=== PATIENT | male | born 1935 | race Caucasian/White ===

== ENCOUNTER 2017-05-15 20:28 | Emergency (ER) | payer OTHER ==
--- NOTE | 2017-05-15 20:58 | ED NURSING NOTES ---
Clinical Report - Nurses [facility] [address] [place] [address] 05/15/2017 20:28 Patient: BEE THOMPSON TRIAGE Triage time 20:36 May 15 2017. Acuity: LEVEL 3. Alert. No acute distress. MEGAN COMA SCORE: [place] Coma Scale: 15- eyes open spontaneously (4); best verbal response- oriented x 4 (5); best motor response- obeys commands (6). --20:48 Cari Durant R.N. 20:36 05/15/17. BP: 182/74. HR: 70. RR: 16. O2 saturation: 96%. Temp: 98.1 F. Pain level now: 0/10. --20:48 Cari Durant R.N. Weight: 81.6 kg stated. Height/Length: 68 inches Per Patient. BMI: 27.4. --20:46 Cari Durant R.N. Medications Carbidopa-Levodopa CR Oral 25/250, 5x per day. --20:40 Cari Durant R.N. Carbidopa-Levodopa Oral 50/200 mg, 5x a day. --20:40 Cari Durant R.N. Primadone 50mg , daily. --20:41 Cari Durant R.N. Selegiline HCl Oral 5 mg, daily. --20:41 Cari Durant R.N. Entacapone Oral (Tablet 200 mg) 1 tablet, 5x a day. --20:42 Cari Durant R.N. Pramipexole Dihydrochloride Oral (Tablet 0.5 mg) 1 tablet, 5x a day. --20:42 Cari Durant R.N. Multivitamin Oral. --20:43 Cari Durant R.N. Allergies None. --20:43 Knebel, Cari, R.N. History Arrived by private vehicle. Historian: patient. Accompanied by family. This occurred (about 2 hours ago). Occurred at home. He has had mild extremity pain (right hip pain). No back pain. Treatment [employer]: None. PAST MEDICAL HX: Tetanus status: up-to-date. Immunizations: up-to-date. SOCIAL HX: Smoker- current status unknown. No alcohol use or drug use. No infectious disease exposure. SELF HARM ASSESSMENT: A self harm assessment was performed. The patient answered "no" to the question "Do you have thoughts of harming or killing yourself?" and "Have you recently had thoughts about harming or killing others?". FALL RISK ASSESSMENT: Fall risk assessment completed. No fall risk identified. NUTRITIONAL RISK ASSESSMENT: The nutritional risk assessment revealed no deficiencies. FUNCTIONAL ASSESSMENT: Functional assessment: no impairments noted. LEARNING NEEDS ASSESSMENT: The learning needs assessment revealed no barriers. ABUSE ASSESSMENT: Abuse assessment: The patient was asked "Do you feel safe in your home?". SKIN INTEGRITY ASSESSMENT: Skin integrity risk assessment completed. No skin integrity risk identified. --20:48 Cari Durant R.N. PROBLEMS: Laceration. Parkinson's Disease. --20:43 Cari Durant R.N. ADDITIONAL SURGERIES: Back Surgery. Hernia Repair. --20:43 Cari Durant R.N. Interventions ID band on patient. To room. --20:48 Cari Durant R.N. PHYSICAL ASSESSMENT To room via wheelchair. GENERAL / NEURO / PSYCH: Alert. Oriented X 4. Appears in no acute distress. HEENT: No signs of head trauma. RESPIRATORY: Respirations not labored. CVS: Capillary refill less than 2 seconds. GI / : Abdomen soft and nontender. EXTREMITIES: Extremities exhibit normal ROM. SKIN: Skin is warm and dry. --20:48 Cari Durant R.N. NURSING PROGRESS NOTES Patient gowned. Patient identifiers checked. Call light placed in reach. Side rails up. Bed placed in lowest position. Brakes of bed on. --20:50 Cari Durant R.N. DISPOSITION / DISCHARGE Departure time: 2103. Condition at departure: improved and stable. No learning barriers present. Discharge instructions provided and reviewed with the patient and family. Patient and family verbalized understanding. Written instructions provided in Bengali. No medication instructions, treatment instructions or activity restrictions. The patient was discharged home and accompanied by family. He left the Emergency Department in a wheelchair and via private vehicle. Family member driving. --21:09 Mary Morrissey R.N. 21:04 05/15/17. BP: 165/71. HR: 67 (regular and normal rate). RR: 18 (regular and unlabored). O2 saturation: 98%. Temp: deferred. Pain level now: 11/05. --21:09 Mary Morrissey R.N. Locked/Released at 05/15/2017 21:10 by Mary Morrissey R.N.
--- NOTE | 2017-05-15 20:58 | ED NURSING NOTES ---
Clinical Report - Nurses [facility] [address] [place] [address] 05/15/2017 20:28 Patient: BEE THOMPSON TRIAGE Triage time 20:36 May 15 2017. Acuity: LEVEL 3. Alert. No acute distress. MEGAN COMA SCORE: [place] Coma Scale: 15- eyes open spontaneously (4); best verbal response- oriented x 4 (5); best motor response- obeys commands (6). --20:48 Cari Durant R.N. 20:36 05/15/17. BP: 182/74. HR: 70. RR: 16. O2 saturation: 96%. Temp: 98.1 F. Pain level now: 0/10. --20:48 Cari Durant R.N. Weight: 81.6 kg stated. Height/Length: 68 inches Per Patient. BMI: 27.4. --20:46 Cari Durant R.N. Medications Carbidopa-Levodopa CR Oral 25/250, 5x per day. --20:40 Cari Durant R.N. Carbidopa-Levodopa Oral 50/200 mg, 5x a day. --20:40 Crai Durant R.N. Primadone 50mg , daily. --20:41 Cari Durant R.N. Selegiline HCl Oral 5 mg, daily. --20:41 Cari Durant R.N. Entacapone Oral (Tablet 200 mg) 1 tablet, 5x a day. --20:42 Cari Durant R.N. Pramipexole Dihydrochloride Oral (Tablet 0.5 mg) 1 tablet, 5x a day. --20:42 Cari Durant R.N. Multivitamin Oral. --20:43 Cari Durant R.N. Allergies None. --20:43 Knebel, Cari, R.N. History Arrived by private vehicle. Historian: patient. Accompanied by family. This occurred (about 2 hours ago). Occurred at home. He has had mild extremity pain (right hip pain). No back pain. 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 PAST MEDICAL HX: Tetanus status: up-to-date. Immunizations: up-to-date. SOCIAL HX: Smoker- current status unknown. No alcohol use or drug use. No infectious disease exposure. SELF HARM ASSESSMENT: A self harm assessment was performed. The patient answered "no" to the question "Do you have thoughts of harming or killing yourself?" and "Have you recently had thoughts about harming or killing others?". FALL RISK ASSESSMENT: Fall risk assessment completed. No fall risk identified. NUTRITIONAL RISK ASSESSMENT: The nutritional risk assessment revealed no deficiencies. FUNCTIONAL ASSESSMENT: Functional assessment: no impairments noted. LEARNING NEEDS ASSESSMENT: The learning needs assessment revealed no barriers. ABUSE ASSESSMENT: Abuse assessment: The patient was asked "Do you feel safe in your home?". SKIN INTEGRITY ASSESSMENT: Skin integrity risk assessment completed. No skin integrity risk identified. --20:48 Cari Durant R.N. PROBLEMS: Laceration. Parkinson's Disease. --20:43 Cari Durant R.N. ADDITIONAL SURGERIES: Back Surgery. Hernia Repair. --20:43 Cari Durant R.N. Interventions ID band on patient. To room. --20:48 Cari Durant R.N. PHYSICAL ASSESSMENT To room via wheelchair. GENERAL / NEURO / PSYCH: Alert. Oriented X 4. Appears in no acute distress. HEENT: No signs of head trauma. RESPIRATORY: Respirations not labored. CVS: Capillary refill less than 2 seconds. GI / : Abdomen soft and nontender. EXTREMITIES: Extremities exhibit normal ROM. SKIN: Skin is warm and dry. --20:48 Cari Durant R.N. NURSING PROGRESS NOTES Patient gowned. Patient identifiers checked. Call light placed in reach. Side rails up. Bed placed in lowest position. Brakes of bed on. --20:50 Cari Durant R.N. DISPOSITION / DISCHARGE Departure time: 2103. Condition at departure: improved and stable. No learning barriers present. Discharge instructions provided and reviewed with the patient and family. Patient and family verbalized understanding. Written instructions provided in Kazakh. No medication instructions, treatment instructions or activity restrictions. The patient was discharged home and accompanied by family. He left the Emergency Department in a wheelchair and via private vehicle. Family member driving. --21:09 Mary Morrissey R.N. 21:04 05/15/17. BP: 165/71. HR: 67 (regular and normal rate). RR: 18 (regular and unlabored). O2 saturation: 98%. Temp: deferred. Pain level now: 11/05. --21:09 Mary Morrissey R.N. Locked/Released at 05/15/2017 21:10 by Mary Morrissey R.N.
--- NOTE | 2017-05-15 20:58 | ED CLINICAL REPORT ---
Clinical Report - Physicians/Mid Levels [facility] [address] [place] [address] 05/15/2017 20:28 Patient: BEE THOMPSON Time Seen: 20:39; initial patient contact, initial documentation, patient care assumed. Arrived- By private vehicle. Historian- patient and son. HISTORY OF PRESENT ILLNESS Chief Complaint: FALL. Location of injuries- right hip. The injury occurred just prior to arrival. Fell while walking and landed on the ground; tripped. Occurred at home. The patient denies pain. No blow to the head, neck pain, loss of consciousness or seizure. Not dazed. (said his R hip hurt at first, but doesn't hurt now son says he walks, but his gait is off and sometimes he locks up and other times he is fine). REVIEW OF SYSTEMS No numbness, chest pain, difficulty breathing, weakness or abdominal pain. No laceration. He has no pain on weight bearing. All systems otherwise negative, except as recorded above. PAST HISTORY See nurses notes. PROBLEMS: Laceration. Parkinson's Disease. --20:43 Cari Durant RBandar. ADDITIONAL SURGERIES: Back Surgery. Hernia Repair. --20:43 Cari Durant R.N. SOCIAL HISTORY Never smoker. No alcohol use or drug use. No recent travel. Is a local resident. FAMILY HISTORY No significant family medical history. ADDITIONAL NOTES The nursing notes have been reviewed with agreement regarding the chief complaint, HPI, ROS, PMH and patient medications and allergies. PHYSICAL EXAM Vital Signs: 05/15/2017 20:36 BP: 182/74. HR: 70. RR: 16. O2 saturation: 96%. Temp: 98.1 F. Pain level now: 0/10. Have been reviewed as normal and appear to be correct. Appearance: Alert. Oriented X3. No acute distress. Head: Head non-tender. No swelling of head. Eyes: Pupils equal, round and reactive to light. EOM intact. ENT: No dental injury. Pharynx normal. Neck: Painless ROM. Non-tender. CVS: Heart sounds normal. Pulses normal. Respiratory: Breath sounds normal. Chest nontender. Abdomen: No visible injury. Soft and nontender. Back: No tenderness. ROM normal. Skin: Skin intact. Skin warm and dry. Normal skin color. Normal skin turgor. Extremities: Normal inspection. Pelvis stable. Extremities atraumatic. No lower extremity edema. Neuro: Oriented X 3. No motor deficit. No sensory deficit. PROGRESS AND PROCEDURES Patient and family counseled in person regarding the patient's stable condition and diagnosis. Differential Diagnosis: Other possible considerations: fall, head injury, fx, sprains, contusions, lacs, abrasions. Above considerations are based on history and physical exam. Differential diagnosis was discussed with patient and patient's family. Disposition: Discharged home in good and improved condition (20:58). Condition: good and stable. CLINICAL IMPRESSION Fall on same level by tripping. Myofascial pain syndrome INSTRUCTIONS Warnings: GENERAL WARNINGS: Return or contact your physician immediately if your condition worsens or changes unexpectedly, if not improving as expected, or if other problems arise. worsening symptoms. Follow-up: Follow up with your doctor in about three days as needed. Call for an appointment. Summary of care provided to patient and family. Understanding of the discharge instructions verbalized by patient and family. (Electronically signed by Beverley Tipton A.R.N.P. 05/15/2017 21:33)
--- NOTE | 2017-05-15 21:33 | ED MED RECONCILIATION SUMMARY ---
Patient: BEE THOMPSON Medication Reconciliation Report [facility] VisitID: [id number] [address] [place] [address] 82y, M Registration Date/Time: 05/15/2017 Weight: 81.6 kg Height/Length: 68 in. BMI: 27.4 ALLERGIES: None The patient's Home Medications are listed below: THE FOLLOWING MEDICATIONS NEED TO BE RECONCILED: Carbidopa-Levodopa CR Oral 25/250, 5x per day Carbidopa-Levodopa Oral 50/200 mg, 5x a day Entacapone Oral (200 mg) 1 tablet, 5x a day Multivitamin Oral Pramipexole Dihydrochloride Oral (0.5 mg) 1 tablet, 5x a day Primadone 50mg , daily Selegiline HCl Oral 5 mg, daily The source(s) of the original Home Medication information: Not obtained. The following Medications were given to the patient in the Emergency Department: None. The following Medications were prescribed to the patient: None.
--- NOTE | 2017-05-15 21:33 | ED MAR SUMMARY ---
..... Medication Administration Record [facility] [address], [place] [id number] Patient: BEE THOMPSON Visit ID: [id number] 82y, M Weight: 81.6 kg Height/Length: 68 in BMI: 27.4 ALLERGIES: None
--- NOTE | 2017-05-15 21:33 | ED MED RECONCILIATION SUMMARY ---
Patient: BEE THOMPSON Medication Reconciliation Report [facility] VisitID: [id number] [address] [place] [address] 82y, M Registration Date/Time: 05/15/2017 Weight: 81.6 kg Height/Length: 68 in. BMI: 27.4 ALLERGIES: None The patient's Home Medications are listed below: THE FOLLOWING MEDICATIONS NEED TO BE RECONCILED: Carbidopa-Levodopa CR Oral 25/250, 5x per day Carbidopa-Levodopa Oral 50/200 mg, 5x a day Entacapone Oral (200 mg) 1 tablet, 5x a day Multivitamin Oral Pramipexole Dihydrochloride Oral (0.5 mg) 1 tablet, 5x a day Primadone 50mg , daily Selegiline HCl Oral 5 mg, daily The source(s) of the original Home Medication information: Not obtained. The following Medications were given to the patient in the Emergency Department: None. The following Medications were prescribed to the patient: None.
--- NOTE | 2017-05-15 21:33 | ED DISCHARGE INSTRUCTIONS ---
Patient: BEE THOMPSON General Instructions [facility] VisitID: [id number] [place] [address] 82y, M Registration Date/Time: 05/15/2017 Fall on same level by tripping. Myofascial pain syndrome INSTRUCTIONS Warnings: GENERAL WARNINGS: Return or contact your physician immediately if your condition worsens or changes unexpectedly, if not improving as expected, or if other problems arise. worsening symptoms. Follow-up: Follow up with your doctor in about three days as needed. Call for an appointment. Summary of care provided to patient and family. Understanding of the discharge instructions verbalized by patient and family. ADDITIONAL INFORMATION Mechanical Fall You have had a fall today. It appears that the cause is mechanical. That means that you slipped, tripped or lost your balance. If your fall had been due to fainting or a seizure, further tests would be required. Home Care: Rest today and resume your normal activities when you are feeling back to normal. If you were injured during the fall, follow the advice from your doctor regarding care of your injury. You may use acetaminophen (Tylenol) or ibuprofen (Motrin, Advil) to control pain, unless another pain medicine was prescribed. [NOTE: If you have chronic liver or kidney disease or ever had a stomach ulcer or GI bleeding, talk with your doctor before using these medicines.] Fall Prevention: Was there anything that caused your fall that can be fixed, removed, or replaced? Make your home safe by keeping walkways clear of objects you may trip over. Use non-slip pads under rugs. Do not walk in poorly lit areas. Do not stand on chairs or wobbly ladders. Use caution when reaching overhead or looking upward. This position can cause a loss of balance. Be sure your shoes fit properly, have non-slip bottoms and are in good condition. Be cautious when going up and down curbs, and walking on uneven sidewalks. If your balance is poor, consider using a cane or walker. Stay as active as you can. Balance, flexibility, strength, and endurance all come from exercise. They all play a role in preventing falls. Follow Up with your doctor or as advised by our staff. Get Prompt Medical Attention if any of the following occur: Repeated mechanical falls, or unexplained falls Dizziness, fainting or seizure Severe headache Chest pain or shortness of breath Palpitations (very rapid or very slow or irregular heartbeat) Blood in vomit, stools (black or red color) Weakness of an arm or leg or one side of the face Difficulty with speech or vision Myofascial Pain Syndrome: Fibrositis Your pain is caused by a state of chronic muscle tension. This condition is called by various names: myofascial pain, fibrositis and trigger point pain. This can also be due to mechanical stress (such as working at a [employer] for long periods; or work that requires repetitive motions of the arms or hands) or emotional stress (such as problems on the job or in your personal life). Sometimes there is no obvious cause. The pain can occur in the area of the muscle spasm or at a site distant to it. For example, spasm of a neck muscle can cause headache. Spasm of the muscle near the shoulder blade can cause pain shooting down the arm. Home Care: Try to identify the factors that may be causing your problem and change them: If you feel thatemotional stressis a cause of your pain, learn methods to deal more effectively with the stress in your life. These may include regular exercise, muscle relaxation techniques, meditation or simply taking time out for yourself. Consult your doctor or go to a local bookstore and review the many books and tapes available on the subject of stress reduction. If you feel that physical stress is a cause for your pain, try to modify any poor work habits. You may use acetaminophen (Tylenol) or ibuprofen (Motrin, Advil) to control pain, unless another medicine was prescribed. [NOTE: If you have chronic liver or kidney disease or ever had a stomach ulcer or GI bleeding, talk with your doctor before using these medicines.] The use of heat to the muscle (hot compress or heating pad) will be helpful to reduce muscle spasm. Some persons get relief with ice packs. Apply an ice pack (crushed or cubed ice in a plastic bag, wrapped in a towel) for 20 minutes at a time as needed. Use the method that feels best to you. Massaging the trigger point and stretching out the muscleare an important parts of prevention and treatment. Trigger point massage can be done by first applying heat to the area to warm and prepare the muscle. Have someone apply steady thumb pressure directly on the knot in the muscle (the most tender point) for 30 seconds. Release the pressure, then massage the surrounding muscle. Repeat the process, applying more pressure to the trigger point each time. Do this up to the limit of pain. With each treatment, the trigger point should become less tender and the pain should decrease. You can apply local pressure to trigger points in the back by lying on the floor with a tennis ball under the trigger point. Follow Up with your doctor as advised or if not improving within the next week. It may be necessary for you to receive physical therapy if you do not respond to home treatment alone. Get Prompt Medical Attention if any of the following occur: If your trigger point is in the chest muscles, observe for pain that becomes more severe, lasts longer, or spreads into your shoulder/arm, neck or back; you develop trouble breathing, sweating, nausea or vomiting in association with chest pain If you develop weakness or numbness in an extremity If your pain worsens, regardless of its location You have been given the following additional information: Fall, Mechanical Myofascial Pain Syndrome (Electronically signed by Beverley Tipton A.R.N.P. 05/15/2017 21:33)
--- NOTE | 2017-05-15 21:33 | ED MAR SUMMARY ---
..... Medication Administration Record [facility] [address] [place], [place] [id number] Patient: BEE THOMPSON Visit ID: [id number] 82y, M Weight: 81.6 kg Height/Length: 68 in BMI: 27.4 ALLERGIES: None
== END 2017-05-15 21:04 | disposition home or self-care (01) ==
LOC: ED SRH 20:28
DX: M79.1 Myalgia (principal); W01.0XXA Fall on same level from slipping, tripping and stumbling without subsequent striking against object, initial encounter; Y93.01 Activity, walking, marching and hiking; Y99.9 Unspecified external cause status; Y92.009 Unspecified place in unspecified non-institutional (private) residence as the place of occurrence of the external cause; G20 Parkinson's disease; Z79.899 Other long term (current) drug therapy